=== PATIENT | female | born 1950 | race Hispanic/Latino ===

== ENCOUNTER 2017-12-31 09:13 | Outpatient (CLI) | payer MEDICARE | END 2017-12-31 09:14 | disposition home or self-care (01) | LOC: BICMAMMO 09:13 | PROVIDERS: ATTEND Internal Medicine Cardiovascular Disease | DX: Z12.31 Encounter for screening mammogram for malignant neoplasm of breast (principal) | CPT/HCPCS: 77063; 77067 ==

== ENCOUNTER 2018-05-08 09:08 | Outpatient (CLI) | payer MEDICARE ==
--- NOTE | 2018-05-08 12:57 | BD ---
DEXA BONE DENSITY: History: Post-menopausal female for screening. Comparison: 12-13-09 Lumbar Spine: BMD (g/cm2) L1 0.884 T-Score: -1.0 L2 0.977 T-Score: -0.5 L3 0.880 T-Score: -1.9 L4 0.800 T-Score: -2.4 L1-L4 0.892 T-Score: -1.4 Femoral Neck: 0.759 T-Score: -0.8 Total Femur: 1.064 T-Score: +1.0 Impression: Osteopenia. This patient has a 10-year fracture risk of a major osteoporotic fracture of 7.8% and hip fracture of 1.0%. POS: [facility]
== END 2018-05-08 09:09 | disposition home or self-care (01) ==
LOC: BICMAMMO 09:08
PROVIDERS: ATTEND Nurse Practitioner
DX: Z13.820 Encounter for screening for osteoporosis (principal); N95.9 Unspecified menopausal and perimenopausal disorder; M85.88 Other specified disorders of bone density and structure, other site; Z12.31 Encounter for screening mammogram for malignant neoplasm of breast
CPT/HCPCS: 77063; 77067; 77080

== ENCOUNTER 2022-07-09 11:50 | Outpatient (CLI) | payer OTHER, MEDICAID | END 2022-07-09 11:51 | disposition home or self-care (01) | LOC: SCSMRI 11:50 | PROVIDERS: ATTEND Orthopaedic Surgery | DX: R22.31 Localized swelling, mass and lump, right upper limb (principal); M75.101 Unspecified rotator cuff tear or rupture of right shoulder, not specified as traumatic; M25.811 Other specified joint disorders, right shoulder; S43.004A Unspecified dislocation of right shoulder joint, initial encounter | CPT/HCPCS: 82565 ==

== ENCOUNTER 2022-07-26 07:41 | Outpatient (CLI) | payer OTHER, MEDICAID ==
[2022-07-26 08:39] LABS: #Eosinphils 0.2 10x3/uL (0.0-0.5); #Monocytes 0.6 10x3/uL (0.0-1.1); #Neutrophils 3.4 10x3/uL (1.5-8.4); %Basophils 0.6 % (0.0-2.0); %Lymphocytes 34.3 % (18.0-47.0); %Monocytes 9.3 % (0.0-10.0); %Neutrophils 52.5 % (40.0-75.0); Hemoglobin 13.7 g/dL (12.0-15.5); Mean Corpuscular HGB CONC 32.2 g/dL (32.0-36.0); Mean Corpuscular Hemoglobin 26.9 pg (27.0-33.0); Mean Corpuscular Volume 83.5 fl (81.6-98.3); Mean Platelet Volume 10.7 fl (7.4-10.4); Platelet Count 201 10x3/uL (150-450); White Blood Cell (WBC) Count 6.4 10x3/uL (3.5-10.5)
[2022-07-26 08:47] LABS: Prothrombin Time 10.4 sec (9.5-12.1)
[2022-07-26 08:50] LABS: Anion Gap 16 mmol/L (10-20); BUN (Urea Nitrogen) 14 mg/dL (9.8-20.1); Calc. Creatinine Clearance 0 mL/min (70-130); Calcium 9.8 mg/dL (7.8-10.44); Carbon Dioxide 27 mmol/L (23-31); Chloride 105 mmol/L (98-107); Estimated GFR 78; Glucose 108 mg/dL (83-110); Potassium 4.3 mmol/L (3.5-5.1); Sodium 144 mmol/L (136-145)
== END 2022-07-26 07:42 | disposition home or self-care (01) ==
LOC: LABBT 07:41
PROVIDERS: ATTEND Orthopaedic Surgery
DX: Z01.818 Encounter for other preprocedural examination (principal); M12.811 Other specific arthropathies, not elsewhere classified, right shoulder
CPT/HCPCS: 80048; 85025; 85610; 93005; 93010

== ENCOUNTER 2022-07-31 05:46 | Observation (INO) | payer OTHER, MEDICAID ==
[2022-07-30 13:53] VITALS: BMI 31.8
[2022-07-31] MEDS ORDERED: Tranexamic Acid 1,000 MG/10 ML VIAL ONE ×2 (05:55→06:05)
[2022-07-31] MEDS ORDERED: Vancomycin (BATCH) 1.5 GRAM/300 ML BAG ONE ×2 (05:55→06:05)
[2022-07-31] MEDS ORDERED: Sodium Chloride 0.9% 100 ML ONE ×3 (05:55→07:02)
[2022-07-31] MEDS ORDERED: Fentanyl 250 MCG/5 ML VIAL ONE (06:13)
[2022-07-31] MEDS ORDERED: Lidocaine 1% PF 5 ML VIAL ONE (06:30)
[2022-07-31] MEDS ORDERED: PROPOFOL 200 MG/20 ML VIAL ONE (06:30)
[2022-07-31] MEDS ORDERED: Dexamethasone 20 MG/5 ML VIAL ONE (06:30)
[2022-07-31] MEDS ORDERED: PHENYLEPHRINE-NS 100 MCG/ML 10 ML SYRINGE ONE (06:30)
[2022-07-31] MEDS ORDERED: Rocuronium Bromide 10 MG/ML (10ML VIAL) ONE (06:30)
[2022-07-31] MEDS ORDERED: Ondansetron PF 4 MG/2 ML Vial ONE (06:30)
[2022-07-31] MEDS ORDERED: Promethazine HCl 25 MG/ML VIAL IM PRN ×3 (06:38→12:47)
[2022-07-31] MEDS ORDERED: Meperidine HCl/PF 25 MG/ML VIAL SLOW IVP PRN (06:38)
[2022-07-31] MEDS ORDERED: Ondansetron HCl/PF 4 MG/2 ML Vial IVP PRN ×2 (06:38→09:29)
[2022-07-31] MEDS ORDERED: Midazolam HCl 2 mg/2 ml Vial ONE (06:44)
[2022-07-31] MEDS ORDERED: Bupivacaine PF 0.5% 30 ML VIAL ONE (06:44)
[2022-07-31] MEDS ORDERED: Lidocaine 1% (PF) 30 ML VIAL ONE (06:44)
[2022-07-31] MEDS ORDERED: Acetaminophen 500 MG TAB ONE (06:47)
[2022-07-31] MEDS ORDERED: CEFAZOLIN 2 GM VIAL ONE (07:02)
[2022-07-31 07:03] LABS: SARS-CoV-2 NAA Rapid Test Not Detected (NotDetected)
[2022-07-31] MEDS ORDERED: SUGAMMADEX SODIUM 200 MG/2 ML VIAL ONE (09:13)
[2022-07-31] MEDS ORDERED: HYDROcodone/Acetaminophen 10/325 mg Tablet PO PRN ×2 (09:18)
[2022-07-31] MEDS ORDERED: Ondansetron ODT 4 MG TAB PO PRN (09:18)
[2022-07-31] MEDS ORDERED: Ondansetron PF 4 MG/2 ML Vial IVP PRN ×2 (09:18→12:47)
[2022-07-31] MEDS ORDERED: HYDROmorphone 2 MG/ML VIAL SLOW IVP PRN (09:29)
[2022-07-31] MEDS ORDERED: Ipratropium/Albuterol 3 ML NEB ONE (09:32)
[2022-07-31] MEDS ORDERED: HYDROmorphone 0.5 MG/0.5 ML SYRINGE ONE ×3 (09:44→12:12)
[2022-07-31] MEDS ORDERED: Fentanyl 100 MCG/2 ML VIAL ONE ×3 (10:05→12:52)
[2022-07-31] MEDS ORDERED: diphenhydrAMINE 50 MG/ML VIAL IVP PRN (12:47)
[2022-07-31] MEDS ORDERED: Zolpidem Tartrate 5 MG TAB PO PRN (12:47)
[2022-07-31] MEDS ORDERED: Naloxone HCl 0.4 mg/ml Vial IV PRN (12:47)
[2022-07-31] MEDS ORDERED: HYDROmorphone 10 mg/100 ml CADD IVPB PRN (12:47)
[2022-07-31] MEDS ORDERED: diphenhydrAMINE 50 MG/ML VIAL IM PRN (12:47)
[2022-07-31] MEDS ORDERED: diphenhydrAMINE 25 MG CAP PO PRN (12:47)
[2022-07-31] MEDS ORDERED: Communication Order-Pharmacy FS SCH (13:00)
[2022-07-31] MEDS: Ketorolac Tromethamine 30 MG/ML VIAL IVP SCH ×3 (13:28→23:16)
[2022-07-31] MEDS: CEFAZOLIN 2 GM in Sodium Chloride 0.9% 100 ML IVPB SCH ×2 (15:08→23:17)
[2022-08-01] MEDS: Ketorolac Tromethamine 30 MG/ML VIAL IVP SCH ×2 (05:58→12:15)
[2022-08-01 09:07] VITALS: BP 157/77
[2022-08-01 13:43] VITALS: TEMP 97.7
== END 2022-08-01 16:40 | disposition home or self-care (01) ==
LOC: SDC 05:46 → SURG A 13:22
PROVIDERS: ADMIT Orthopaedic Surgery; ATTEND Orthopaedic Surgery
PROC: 0RRJ00Z Replacement of Right Shoulder Joint with Reverse Ball and Socket Synthetic Substitute, Open Approach (ICD-10-PCS; principal; 2022-07-31)
DX: M75.101 Unspecified rotator cuff tear or rupture of right shoulder, not specified as traumatic (principal); M25.811 Other specified joint disorders, right shoulder; S46.211A Strain of muscle, fascia and tendon of other parts of biceps, right arm, initial encounter; I10 Essential (primary) hypertension; M19.90 Unspecified osteoarthritis, unspecified site; E78.00 Pure hypercholesterolemia, unspecified; E66.9 Obesity, unspecified; Z68.31 Body mass index [BMI] 31.0-31.9, adult; Z86.73 Personal history of transient ischemic attack (TIA), and cerebral infarction without residual deficits; Z87.891 Personal history of nicotine dependence; Z79.899 Other long term (current) drug therapy; Z20.822 Contact with and (suspected) exposure to COVID-19
CPT/HCPCS: 23472; 71045; 96372; 96374; 96375; 96376 ×2; 97116; 97535; C1713 ×6; C1776 ×4; G0378 ×2; J3370; U0002; J1100; J1170; J1885; J2001; J2250; J2405; J2550; J2704; J3010; J3490; J7620; S0020